=== PATIENT | female | born 1940 | race Caucasian/White ===

== ENCOUNTER 2019-05-17 22:14 | Inpatient (IN) ==
[2019-05-17] MEDS ORDERED: ONDANSETRON 4 MG/2 ML VIAL IV STA (22:38)
[2019-05-17] MEDS ORDERED: AZITHROMYCIN INJ 500 MG in SODIUM CHLORIDE 0.9% 250 ML IV STA (22:38)
[2019-05-17] MEDS ORDERED: MAGNESIUM SULF RIDER 2 GM in PREMIX 1 EACH IV STA (22:38)
[2019-05-17] MEDS ORDERED: cefTRIAXone 1,000 MG in SODIUM CHLORIDE 0.9% 100 ML IV STA (22:38)
[2019-05-17] MEDS ORDERED: methylPREDNISolone SOD SUC 125 MG/2 ML VIAL IV STA (22:46)
[2019-05-17] MEDS ORDERED: ALBUTEROL 2.5 MG/3 ML NEB RESP TX SCH (23:00)
[2019-05-17 23:12] LABS: Basophils # 0.1 10*3/uL (0.0-0.2); Eosinophils # 0.1 10*3/uL (0.0-0.87); Eosinophils % 0.6 % (0.00-10.9); Hematocrit 33.7 VOL% (35.7-47.0); Hemoglobin 9.9 GM/DL (12.0-16.0); Immature Granulocytes % 1.1 %; Lymphocytes # 1.6 10*3/uL (1.4-4.0); Lymphocytes % 16.7 % (21.3-54.2); Mean Corpuscular HGB Conc 29.4 GM/DL (32-36); Mean Platelet Volume 10.3 FL (9.6-12.0); Monocytes % 15.8 % (1.7-12.7); NRBC # 0.03 10*3/uL; Neutrophils % 64.8 % (38.7-73.9); Platelet Count 298 T/CUMM (130-400); Red Blood Count 3.92 MC/CUMM (3.8-5.5); Red Cell Distribution Width 15.8 % (9.3-17.3); White Blood Count 9.3 T/CUMM (4-12)
[2019-05-17 23:32] LABS: Alanine Aminotransferase 22 U/L (13-56); Albumin 3.5 G/DL (3.4-5.0); Alkaline Phosphatase 116 U/L (45-117); Aspartate Amino Transferase 19 U/L (0-37); Bilirubin,Total < 0.39 MG/DL (0.2-1.0); Blood Urea Nitrogen 25 MG/DL (7-18); Calcium 8.3 MG/DL (8.5-10.1); Estimated Glom Filtration Rate 32 ML/MIN; Glucose 148 MG/DL (74-106); Total Protein 7.4 G/DL (6.4-8.3); Troponin I < 0.015 NG/ML (0.00-0.045)
[2019-05-17 23:33] LABS: INR 0.9; PT Patient Result 10.3 SECS (9.6-12.2); Partial Thromboplastin Time 27.9 SECS (20.8-36.0)
[2019-05-18 00:13] LABS: Lymphocytes 16 % (20-55); Platelet Estimate Normal; Polychromasia Few; Segmented Neutrophils 77 % (50-85); Total Cells Counted 100
[2019-05-18 01:03] LABS: Apearance,Urine CLEAR (Clear); Bacteria,Urine Occasional /HPF (Few); Bilirubin,Urine Negative (Negative); Blood, Urine Negative (Negative); Glucose,Urine (UA) Negative (Negative); Hyaline Casts,Urine 3 /LPF (0-3); Ketones,Urine Negative (Negative); Mucus,Urine Occasional /LPF (Occasional); Nitrite,Urine Negative (Negative); Protein,Urine 100 MG/DL; Squamous Epithelial Cell,Urine Occasional /HPF (0-10); Urine Color Yellow (Yellow); Urine Specific Gravity 1.016 (1.001-1.035); Urine Urobilinogen < 2.0 EU/DL (0.2-1.0)
[2019-05-18] MEDS ORDERED: ALBUTEROL 2.5 MG/3 ML NEB RESP TX PRN (01:43)
[2019-05-18] MEDS ORDERED: DEXTROSE 50% 25 GM/50 ML VIAL IV PRN (01:44)
[2019-05-18] MEDS ORDERED: GLUCAGON 1 MG VIAL IM PRN (01:44)
[2019-05-18] MEDS ORDERED: ONDANSETRON 4 MG/2 ML VIAL IV PRN (01:44)
[2019-05-18] MEDS ORDERED: ACETAMINOPHEN 325 MG TABLET PO PRN (01:44)
[2019-05-18] MEDS: SODIUM CHLORIDE 0.9% 1,000 ML IV SCH ×2 (02:20→15:40)
[2019-05-18] MEDS ORDERED: NITROGLYCERIN SL 0.4 MG TABLET SL PRN (03:01)
[2019-05-18] MEDS: NICOTINE 21 MG/24 HR PATCH TRANSDERM PRN (05:54)
[2019-05-18] MEDS: LEVOTHYROXINE 75 MCG TABLET PO SCH (05:55)
[2019-05-18 06:34] LABS: Basophils % 0.5 % (0.0-0.8); Eosinophils % 0.2 % (0.00-10.9); Hemoglobin 9.3 GM/DL (12.0-16.0); Immature Granulocytes % 1.1 %; Immature Granulocytes Absolute 0.06 #; Lymphocytes # 0.6 10*3/uL (1.4-4.0); Lymphocytes % 11.4 % (21.3-54.2); Mean Corpuscular Volume 85.4 FL (87-102); Mean Platelet Volume 10.5 FL (9.6-12.0); Monocytes % 1.2 % (1.7-12.7); NRBC # 0.02 10*3/uL; Neutrophils % 85.6 % (38.7-73.9); Platelet Count 256 T/CUMM (130-400); Red Blood Count 3.63 MC/CUMM (3.8-5.5); Red Cell Distribution Width 15.8 % (9.3-17.3); White Blood Count 5.6 T/CUMM (4-12)
[2019-05-18 07:00] LABS: Calcium 8.3 MG/DL (8.5-10.1); Osmolality,Calculated 289.3 MOS/KG (273-304)
[2019-05-18 07:11] LABS: Thyroid Stimulating Hormone 1.16 uIU/ml (0.358-3.74)
[2019-05-18] MEDS: ALBUTEROL/IPRATROPIUM 3 ML NEB RESP TX SCH ×3 (08:03→19:44)
[2019-05-18] MEDS: INSULIN LISPRO 100 UNIT/ML SUBCUT SCH ×3 (08:38→16:56)
[2019-05-18] MEDS: methylPREDNISolone SOD SUC 40 MG/1 ML VIAL IV SCH ×2 (09:11→15:40)
[2019-05-18] MEDS: METOPROLOL TARTRATE 100 MG TABLET PO SCH ×2 (09:11→16:56)
[2019-05-18] MEDS: APIXABAN 2.5 MG TABLET PO SCH (09:12)
[2019-05-18] MEDS: GABAPENTIN 300 MG CAPSULE PO SCH (09:12)
[2019-05-18] MEDS: guaiFENesin/DM ER 600-30 MG TABLET PO SCH (09:12)
[2019-05-18] MEDS: PANTOPRAZOLE 40 MG TABLET PO SCH (09:12)
[2019-05-18] MEDS: amLODIPine 10 MG TABLET PO SCH (09:12)
[2019-05-18] MEDS: LORazepam 1 MG TABLET PO SCH (09:12)
[2019-05-18] MEDS: BENZONATATE 100 MG CAPSULE PO SCH ×2 (09:12→15:40)
[2019-05-18] MEDS ORDERED: methylPREDNISolone SOD SUC 125 MG/2 ML VIAL IV ONE (22:34)
[2019-05-19] MEDS: APIXABAN 2.5 MG TABLET PO SCH ×3 (00:02→21:46)
[2019-05-19] MEDS: guaiFENesin/DM ER 600-30 MG TABLET PO SCH ×3 (00:02→21:46)
[2019-05-19] MEDS: AZITHROMYCIN INJ 500 MG in SODIUM CHLORIDE 0.9% 250 ML IV SCH ×2 (00:03→21:50)
[2019-05-19] MEDS: GABAPENTIN 300 MG CAPSULE PO SCH ×3 (00:03→21:46)
[2019-05-19] MEDS: BENZONATATE 100 MG CAPSULE PO SCH ×4 (00:03→21:46)
[2019-05-19] MEDS: LORazepam 1 MG TABLET PO SCH ×3 (00:09→21:46)
[2019-05-19] MEDS: INSULIN LISPRO 100 UNIT/ML SUBCUT SCH ×5 (00:10→22:19)
[2019-05-19] MEDS: ALBUTEROL/IPRATROPIUM 3 ML NEB RESP TX SCH ×2 (00:18→07:13)
[2019-05-19] MEDS: cefTRIAXone 1,000 MG in SYRINGE 1 EACH IV SCH ×2 (01:08→21:46)
[2019-05-19] MEDS: methylPREDNISolone SOD SUC 40 MG/1 ML VIAL IV SCH ×3 (01:08→16:39)
[2019-05-19 05:07] LABS: Basophils % 0.1 % (0.0-0.8); Hematocrit 29.6 VOL% (35.7-47.0); Hemoglobin 8.7 GM/DL (12.0-16.0); Immature Granulocytes % 0.8 %; Lymphocytes # 0.6 10*3/uL (1.4-4.0); Lymphocytes % 5.2 % (21.3-54.2); Mean Corpuscular HGB Conc 29.4 GM/DL (32-36); Mean Corpuscular Volume 85.5 FL (87-102); Mean Platelet Volume 10.3 FL (9.6-12.0); Monocytes % 1.7 % (1.7-12.7); NRBC # 0.03 10*3/uL; Neutrophils % 92.2 % (38.7-73.9); Platelet Count 267 T/CUMM (130-400); Red Blood Count 3.46 MC/CUMM (3.8-5.5); Red Cell Distribution Width 15.6 % (9.3-17.3); White Blood Count 12.1 T/CUMM (4-12)
[2019-05-19 05:21] LABS: Calcium 8.3 MG/DL (8.5-10.1); Osmolality,Calculated 293.4 MOS/KG (273-304)
[2019-05-19 05:52] LABS: Lymphocytes 4 % (20-55); Platelet Estimate Normal; Segmented Neutrophils 96 % (50-85); Total Cells Counted 100
[2019-05-19] MEDS: LEVOTHYROXINE 75 MCG TABLET PO SCH (07:01)
[2019-05-19] MEDS: METOPROLOL TARTRATE 100 MG TABLET PO SCH ×2 (08:20→16:43)
[2019-05-19] MEDS ORDERED: DILTIAZEM 50 MG/10 ML VIAL IV ONE (09:05)
[2019-05-19] MEDS ORDERED: DILTIAZEM 25 MG/5 ML VIAL IV ONE (09:12)
[2019-05-19] MEDS: amLODIPine 10 MG TABLET PO SCH (09:54)
[2019-05-19] MEDS: PANTOPRAZOLE 40 MG TABLET PO SCH (09:54)
[2019-05-19] MEDS: NICOTINE 21 MG/24 HR PATCH TRANSDERM PRN (10:54)
[2019-05-19] MEDS: Cinnamon Bark [Cinnamon] 1,000 MG PO SCH (12:13)
[2019-05-19] MEDS: DOCUSATE SODIUM 100 MG CAPSULE PO PRN (16:41)
[2019-05-19] MEDS: LEVALBUTEROL 1.25 MG/3 ML NEB RESP TX PRN (19:50)
[2019-05-20] MEDS: LEVALBUTEROL 1.25 MG/3 ML NEB RESP TX PRN ×4 (01:16→23:55)
[2019-05-20] MEDS: methylPREDNISolone SOD SUC 40 MG/1 ML VIAL IV SCH ×4 (01:30→21:17)
[2019-05-20] MEDS: LEVOTHYROXINE 75 MCG TABLET PO SCH (06:38)
[2019-05-20] MEDS: NICOTINE 21 MG/24 HR PATCH TRANSDERM SCH (08:17)
[2019-05-20] MEDS: METOPROLOL TARTRATE 100 MG TABLET PO SCH ×2 (08:17→17:30)
[2019-05-20] MEDS: GABAPENTIN 300 MG CAPSULE PO SCH ×2 (08:17→21:13)
[2019-05-20] MEDS: guaiFENesin/DM ER 600-30 MG TABLET PO SCH ×2 (08:18→21:12)
[2019-05-20] MEDS: AZITHROMYCIN 250 MG TABLET PO SCH (08:18)
[2019-05-20] MEDS: APIXABAN 2.5 MG TABLET PO SCH ×2 (08:18→21:12)
[2019-05-20] MEDS: PANTOPRAZOLE 40 MG TABLET PO SCH (08:18)
[2019-05-20] MEDS: BENZONATATE 100 MG CAPSULE PO SCH ×3 (08:18→21:13)
[2019-05-20] MEDS: amLODIPine 10 MG TABLET PO SCH (08:19)
[2019-05-20] MEDS: LORazepam 1 MG TABLET PO SCH ×2 (08:19→21:16)
[2019-05-20] MEDS: Cinnamon Bark [Cinnamon] 1,000 MG PO SCH (09:00)
[2019-05-20 11:29] LABS: Basophils % 0.1 % (0.0-0.8); Hematocrit 32.3 VOL% (35.7-47.0); Hemoglobin 9.5 GM/DL (12.0-16.0); Immature Granulocytes % 1.1 %; Lymphocytes # 0.7 10*3/uL (1.4-4.0); Lymphocytes % 3.9 % (21.3-54.2); Mean Corpuscular HGB Conc 29.4 GM/DL (32-36); Mean Corpuscular Volume 86.6 FL (87-102); Mean Platelet Volume 10.5 FL (9.6-12.0); NRBC # 0.03 10*3/uL; Neutrophils % 91.9 % (38.7-73.9); Platelet Count 341 T/CUMM (130-400); Red Blood Count 3.73 MC/CUMM (3.8-5.5); Red Cell Distribution Width 15.9 % (9.3-17.3); White Blood Count 18.3 T/CUMM (4-12)
[2019-05-20] MEDS ORDERED: FUROSEMIDE 40 MG/4 ML VIAL IV ONE (11:29)
[2019-05-20] MEDS: INSULIN LISPRO 100 UNIT/ML SUBCUT SCH ×4 (11:38→21:00)
[2019-05-20 11:41] LABS: Calcium 8.7 MG/DL (8.5-10.1)
[2019-05-20 11:46] LABS: Band Neutrophils 1 % (0-10); Lymphocytes 6 % (20-55); Platelet Estimate Normal; Segmented Neutrophils 88 % (50-85); Total Cells Counted 100
[2019-05-20 11:47] LABS: Anisocytosis 1+; Macrocytosis 1+; Polychromasia Slight
[2019-05-20] MEDS: FUROSEMIDE 40 MG/4 ML VIAL IV SCH (17:29)
[2019-05-20] MEDS: SIMVASTATIN 40 MG TABLET PO SCH (21:14)
[2019-05-20] MEDS: DOCUSATE SODIUM 100 MG CAPSULE PO PRN (21:14)
[2019-05-20] MEDS: cefTRIAXone 1,000 MG in SYRINGE 1 EACH IV SCH (21:22)
[2019-05-21] MEDS ORDERED: MAGNESIUM HYDROXIDE SUSP 30 ML UDCUP PO PRN (03:26)
[2019-05-21 04:44] LABS: Basophils % 0.1 % (0.0-0.8); Hematocrit 29.9 VOL% (35.7-47.0); Hemoglobin 8.9 GM/DL (12.0-16.0); Immature Granulocytes % 0.9 %; Immature Granulocytes Absolute 0.09 #; Lymphocytes # 0.7 10*3/uL (1.4-4.0); Lymphocytes % 6.8 % (21.3-54.2); Mean Corpuscular HGB Conc 29.8 GM/DL (32-36); Mean Platelet Volume 10.5 FL (9.6-12.0); Monocytes % 2.6 % (1.7-12.7); Neutrophils % 89.6 % (38.7-73.9); Platelet Count 257 T/CUMM (130-400); Red Blood Count 3.56 MC/CUMM (3.8-5.5); Red Cell Distribution Width 15.9 % (9.3-17.3); White Blood Count 9.9 T/CUMM (4-12)
[2019-05-21 05:26] LABS: Calcium 8.5 MG/DL (8.5-10.1); Osmolality,Calculated 294.8 MOS/KG (273-304)
[2019-05-21] MEDS: LEVOTHYROXINE 75 MCG TABLET PO SCH (06:28)
[2019-05-21] MEDS: INSULIN LISPRO 100 UNIT/ML SUBCUT SCH ×4 (08:48→20:10)
[2019-05-21] MEDS: AZITHROMYCIN 250 MG TABLET PO SCH (08:49)
[2019-05-21] MEDS: FUROSEMIDE 40 MG/4 ML VIAL IV SCH ×2 (08:49→16:02)
[2019-05-21] MEDS: GABAPENTIN 300 MG CAPSULE PO SCH ×2 (08:49→20:10)
[2019-05-21] MEDS: METOPROLOL TARTRATE 100 MG TABLET PO SCH ×2 (08:50→17:27)
[2019-05-21] MEDS: APIXABAN 2.5 MG TABLET PO SCH ×2 (08:51→20:10)
[2019-05-21] MEDS: BENZONATATE 100 MG CAPSULE PO SCH ×3 (08:51→20:10)
[2019-05-21] MEDS: amLODIPine 10 MG TABLET PO SCH (08:51)
[2019-05-21] MEDS: Cinnamon Bark [Cinnamon] 1,000 MG PO SCH (08:52)
[2019-05-21] MEDS: LORazepam 1 MG TABLET PO SCH ×2 (08:52→20:10)
[2019-05-21] MEDS: guaiFENesin/DM ER 600-30 MG TABLET PO SCH ×2 (08:52→20:10)
[2019-05-21] MEDS: PANTOPRAZOLE 40 MG TABLET PO SCH (08:52)
[2019-05-21] MEDS: methylPREDNISolone SOD SUC 40 MG/1 ML VIAL IV SCH ×2 (08:53→20:11)
[2019-05-21] MEDS: LEVALBUTEROL 1.25 MG/3 ML NEB RESP TX PRN ×3 (13:33→23:49)
[2019-05-21] MEDS: NICOTINE 21 MG/24 HR PATCH TRANSDERM SCH (13:57)
[2019-05-21] MEDS: SIMVASTATIN 40 MG TABLET PO SCH (20:10)
[2019-05-21] MEDS: cefTRIAXone 1,000 MG in SYRINGE 1 EACH IV SCH (21:02)
[2019-05-22] MEDS: LEVOTHYROXINE 75 MCG TABLET PO SCH (05:49)
[2019-05-22] MEDS: INSULIN LISPRO 100 UNIT/ML SUBCUT SCH ×4 (08:12→21:09)
[2019-05-22] MEDS: GABAPENTIN 300 MG CAPSULE PO SCH ×2 (08:48→20:28)
[2019-05-22] MEDS: LORazepam 1 MG TABLET PO SCH ×2 (08:48→20:28)
[2019-05-22] MEDS: AZITHROMYCIN 250 MG TABLET PO SCH (08:49)
[2019-05-22] MEDS: guaiFENesin/DM ER 600-30 MG TABLET PO SCH ×2 (08:49→20:29)
[2019-05-22] MEDS: amLODIPine 10 MG TABLET PO SCH (08:50)
[2019-05-22] MEDS: APIXABAN 2.5 MG TABLET PO SCH ×2 (08:50→20:29)
[2019-05-22] MEDS: PANTOPRAZOLE 40 MG TABLET PO SCH (08:50)
[2019-05-22] MEDS: methylPREDNISolone SOD SUC 40 MG/1 ML VIAL IV SCH ×2 (08:51→20:25)
[2019-05-22] MEDS: BENZONATATE 100 MG CAPSULE PO SCH ×3 (08:51→20:28)
[2019-05-22] MEDS: METOPROLOL TARTRATE 100 MG TABLET PO SCH ×2 (08:51→16:32)
[2019-05-22] MEDS: LEVALBUTEROL 1.25 MG/3 ML NEB RESP TX PRN ×2 (08:54→20:11)
[2019-05-22] MEDS: NICOTINE 21 MG/24 HR PATCH TRANSDERM SCH (08:57)
[2019-05-22] MEDS: Cinnamon Bark [Cinnamon] 1,000 MG PO SCH (08:57)
[2019-05-22] MEDS: FUROSEMIDE 40 MG/4 ML VIAL IV SCH ×2 (08:57→16:32)
[2019-05-22] MEDS: SIMVASTATIN 40 MG TABLET PO SCH (20:28)
[2019-05-22] MEDS: cefTRIAXone 1,000 MG in SYRINGE 1 EACH IV SCH (21:09)
[2019-05-23 06:18] LABS: Basophils % 0.1 % (0.0-0.8); Hematocrit 34.3 VOL% (35.7-47.0); Hemoglobin 10.5 GM/DL (12.0-16.0); Immature Granulocytes % 1.5 %; Immature Granulocytes Absolute 0.11 #; Lymphocytes # 0.7 10*3/uL (1.4-4.0); Lymphocytes % 10.1 % (21.3-54.2); Mean Corpuscular HGB Conc 30.6 GM/DL (32-36); Mean Corpuscular Volume 82.3 FL (87-102); Mean Platelet Volume 10.5 FL (9.6-12.0); Monocytes % 3.8 % (1.7-12.7); Neutrophils % 84.5 % (38.7-73.9); Platelet Count 270 T/CUMM (130-400); Red Blood Count 4.17 MC/CUMM (3.8-5.5); Red Cell Distribution Width 15.2 % (9.3-17.3); White Blood Count 7.3 T/CUMM (4-12)
[2019-05-23 06:44] LABS: Calcium 8.6 MG/DL (8.5-10.1); Osmolality,Calculated 294.1 MOS/KG (273-304)
[2019-05-23] MEDS: LEVOTHYROXINE 75 MCG TABLET PO SCH (06:57)
[2019-05-23] MEDS: INSULIN LISPRO 100 UNIT/ML SUBCUT SCH ×2 (07:38→13:15)
[2019-05-23] MEDS: BENZONATATE 100 MG CAPSULE PO SCH (08:19)
[2019-05-23] MEDS: AZITHROMYCIN 250 MG TABLET PO SCH (08:19)
[2019-05-23] MEDS: FUROSEMIDE 40 MG/4 ML VIAL IV SCH (08:19)
[2019-05-23] MEDS: guaiFENesin/DM ER 600-30 MG TABLET PO SCH (08:20)
[2019-05-23] MEDS: NICOTINE 21 MG/24 HR PATCH TRANSDERM SCH (08:20)
[2019-05-23] MEDS: LORazepam 1 MG TABLET PO SCH (08:20)
[2019-05-23] MEDS: GABAPENTIN 300 MG CAPSULE PO SCH (08:20)
[2019-05-23] MEDS: PANTOPRAZOLE 40 MG TABLET PO SCH (08:20)
[2019-05-23] MEDS: APIXABAN 2.5 MG TABLET PO SCH (08:20)
[2019-05-23] MEDS: METOPROLOL TARTRATE 100 MG TABLET PO SCH (08:20)
[2019-05-23] MEDS: amLODIPine 10 MG TABLET PO SCH (08:20)
[2019-05-23] MEDS: methylPREDNISolone SOD SUC 40 MG/1 ML VIAL IV SCH (08:21)
[2019-05-23] MEDS: Cinnamon Bark [Cinnamon] 1,000 MG PO SCH (08:22)
[2019-05-23 12:02] VITALS: BP 134/60
== END 2019-05-23 13:50 | disposition home or self-care (01) | DRG 193 ==
LOC: N.ED 22:14 → N.EDINP 05-18 01:31 → SUATTDRO 05-18 01:31 → SUPCPDRO 05-18 01:31 → N.5E 05-18 01:43 → N.ICU 05-18 22:39 → N.5E 05-22 15:52
PROVIDERS: ADMIT Internal Medicine; ATTEND Hospitalist